=== PATIENT | male | born 1935 | race Caucasian/White ===

== ENCOUNTER 2017-04-25 12:44 | Emergency (ER) | payer OTHER, MEDICAID, MEDICARE ==
[2017-04-25] MEDS: morphine 4 MG/ML VIAL IV (16:23)
[2017-04-25] MEDS: ONDANSETRON 4 MG INJ IV (16:23)
[2017-04-25 16:55] LABS: ADD MAN DIFF? NO
[2017-04-25 16:58] LABS: WHITE BLOOD COUNT 9.1 10^3/ul (4.8-10.8)
[2017-04-25 16:58] LABS: BASOPHILS % 0.2 % (0.0-2.0); EOSINOPHILS # 0.1 10^3/ul (0.0-0.5); EOSINOPHILS % 0.9 % (0.0-7.0); HEMATOCRIT 39.3 % (42.0-52.0); HEMOGLOBIN 12.7 g/dl (14.0-18.0); LYMPHOCYTES # 1.5 10^3/ul (0.8-2.9); MEAN CORPUSCULAR HGB CONC 32.3 g/dl (32.0-37.0); MEAN CORPUSCULAR VOLUME 92.9 fl (82.0-101.0); MEAN PLATELET VOLUME 9.7 fl (7.4-10.4); MONOCYTE # 0.9 10^3/ul (0.3-0.9); MONOCYTES % 9.9 % (0.0-11.0); NEUTROPHIL # 6.6 10^3/ul (1.6-7.5); NEUTROPHILS % 72.8 % (39.0-77.0); PLATELET COUNT 282 10^3/UL (140-415); RED BLOOD COUNT 4.23 10^6/ul (4.70-6.10); RED CELL DISTRIBUTION WIDTH 13.2 % (11.5-14.5)
[2017-04-25 17:17] LABS: INR 0.98; PROTIME 13.1 Sec (11.9-14.9)
[2017-04-25 17:18] LABS: PARTIAL THROMBOPLASTIN TIME 26.2 Sec (25.0-35.0)
[2017-04-25 17:23] LABS: ALANINE AMINOTRANSFERASE 38 IU/L (13-69); ALBUMIN 4.2 g/dl (3.3-4.9); ALBUMIN/GLOBULIN RATIO 1.44; ALKALINE PHOSPHATASE 87 IU/L (42-121); ANION GAP 16 (8-16); ASPARTATE AMINO TRANSFERASE 27 IU/L (15-46); BILIRUBIN,INDIRECT 0.5 mg/dl (0-1.1); BILIRUBIN,TOTAL 0.5 mg/dl (0.2-1.3); BLOOD UREA NITROGEN 17 mg/dl (7-20); CALCIUM 9.2 mg/dl (8.4-10.2); CARBON DIOXIDE 28 mmol/L (21-31); CHLORIDE 104 mmol/L (97-110); CREATINE KINASE 42 IU/L (23-200); CREATININE 0.93 mg/dl (0.61-1.24); GLUCOSE 95 mg/dl (70-220); POTASSIUM 4.5 mmol/L (3.5-5.1); SODIUM 143 mmol/L (135-144); TOTAL PROTEIN 7.1 g/dl (6.1-8.1)
[2017-04-25 17:37] LABS: B-TYPE NATRIURETIC PEPTIDE 79 PG/ML (0-450); CK INDEX 4.2
[2017-04-25 17:45] LABS: CK-MB 1.77 ng/ml (0.0-2.4); TROPONIN-I < 0.012 ng/ml (0.00-0.12)
== END 2017-04-25 19:18 | disposition home or self-care (01) ==
LOC: E/R 19:18
DX: M25.462 Effusion, left knee (principal); J20.9 Acute bronchitis, unspecified; R07.9 Chest pain, unspecified
CPT/HCPCS: 71010; 73562; 80053; 82550; 82553; 83880; 84484; 85025; 85610; 85730; 93005; 96374; 96375; 99285-25

== ENCOUNTER 2017-04-28 13:22 | Emergency (ER) | payer OTHER | END 2017-04-28 17:36 | disposition home or self-care (01) | LOC: FTE 13:22 | DX: M25.462 Effusion, left knee (principal) | CPT/HCPCS: 99284 ==